=== PATIENT | female | born 1955 | race African-American/Black ===

== ENCOUNTER 2016-04-23 13:45 | Outpatient (RCR) | payer MEDICAID ==
[~2016-04-23 13:45] MED LIST: ACETAMINOPHEN W1 TA6 PO; ACTOS 15MG TAB15 MG PO; ALDACTONE; ALDACTONE 25MG25 M1 PO; ALLEGRA 180MG180 MG PO; AMOXICILLIN 8751 TAB PO; ANTIVERT; ANTIVERT 25MG25 MG PO; ASPIRIN E.C. 8181 MG PO; ATIVAN 0.50.5 MG/TAB PO; BUPROBAN150 MG PO; CELEXA10 MG PO; CLARITIN; CLARITIN 1010 MG/TAB PO; CLEOCIN HC150 MG/CAP PO; CLEOCIN HCL300 MG PO; CLINDAMYCIN HC150 MG PO; COZAAR 25MG25 MG/TAB PO; COZAAR100 MG PO; DIABETA; DIFLUCAN150 MG PO; DIOVAN 160MG160 MG PO; DIOVAN160 MG PO; FERROUS SULFATE65 MG PO; FLEXERIL 1010 MG/TAB PO; GLUCOPHAGE1000 MG PO; GUAIFEN AC 10120 ML PO; HCTZ12.5TAB PO; IBU-8800 MG PO; JANUMET 1000 MG1 TA1 PO; JANUMET 500 MG-1 TA1 PO; LANTUS100 U/ML; LEVEMIR FLEX100 U/ML SQ; LIPITOR20 MG PO; LOPRESSOR 225 MG/TAB PO; LORTAB 10/500 51 TAB PO; LORTAB 5/500 501 TAB PO; LOVENOX 4040 MG/0.4 SQ; LOZOL; LYRICA 50MG CAP50 MG PO; Lantus; MOTRIN 800800 MG/TAB PO; NATEGLINIDE120 MG PO; NATURE'S BLE1000 MCG; NEURONTIN300 MG/CAP PO; NICODERM C21 MG/PATC TD; NORCO 325 MG-51 TAB PO; NORCO 325 MG-7.1 TAB PO; NORMODYNE200 MG PO; NOVLOG SQ; PERCOCET 325 MG1 TA2 PO; PHENERGAN W/CO120 ML PO; PLAVIX 75MG TAB75 MG PO; PRAVACHOL 20MG20 MG PO; PREVPAC; PRILOSEC 20MG20 MG PO; PRINCIPEN500 MG PO; PROAIR HFA0.09 MG/AC IH; PROVENTIL0.09 MG/A1 IH; PROZAC 20MG20 MG PO; PrevPak; Remove Patch TD; TRANDATE 100MG100 MG PO; TRANSDERM-0.5 MG/21 TD; TUSS PO; TYLENOL #3 301 UDTAB PO; TYLENOL 500MG500 MG PO; TYLENOL W/COD1 UDTAB PO; ULTRAM 50MG TAB50 MG PO; VICTOZA6 MG/ML SQ; XANAX .25M0.25 MG/TA PO; ZITHROMAX 250M250 MG PO; ZITHROMAX Z PA250 MG PO; ZOCOR 40MG40 MG PO; ZOCOR40 MG PO; ZOFRAN 4MG T4 MG/TAB PO; allegra; glyburide PO; starlix
[2016-07-05] MEDS ORDERED: VOLTAREN 75 DR75 MG PO (20:40)
[2016-07-05] MEDS ORDERED: NORCO 325 MG-51 TAB PO (20:40)
[2016-07-05] MEDS ORDERED: PREDNISONE20 MG PO (20:40)
== END 2016-07-06 | disposition home or self-care (01) ==
LOC: MKS.ESL.PT
DX: I63.8 Other cerebral infarction (principal)

== ENCOUNTER 2016-07-05 18:58 | Emergency (ER) | payer MEDICAID ==
[~2016-07-05] VITALS: Ht 157.5 cm; Wt 63.6 kg
[2016-07-05 19:07] VITALS: TEMP 97.9
[2016-07-05] MEDS ORDERED: PREDNISONE20 MG PO (20:40)
[2016-07-05] MEDS ORDERED: NORCO 325 MG-51 TAB PO (20:40)
[2016-07-05] MEDS ORDERED: VOLTAREN 75 DR75 MG PO (20:40)
[2016-07-05 20:48] VITALS: BP 136/78; PULSE 74
== END 2016-07-05 20:59 | disposition home or self-care (01) ==
LOC: COL.ER 18:58
DX: M71.551 Other bursitis, not elsewhere classified, right hip (principal); I10 Essential (primary) hypertension; E11.9 Type 2 diabetes mellitus without complications; F17.210 Nicotine dependence, cigarettes, uncomplicated; Z79.4 Long term (current) use of insulin; I69.351 Hemiplegia and hemiparesis following cerebral infarction affecting right dominant side
CPT/HCPCS: J1885; J7512

== ENCOUNTER 2016-09-06 21:08 | Emergency (ER) | payer MEDICAID ==
[~2016-09-06] VITALS: Ht 157.5 cm; Wt 68.2 kg
[~2016-09-06 21:08] MED LIST changes: +PREDNISONE20 MG PO; +VOLTAREN 75 DR75 MG PO
[2016-09-06 21:12] VITALS: BP 140/74; TEMP 98.2
[2016-09-06 22:16] VITALS: PULSE 82
== END 2016-09-06 22:17 | disposition home or self-care (01) ==
LOC: COL.ER 21:08
DX: K08.89 Other specified disorders of teeth and supporting structures (principal); Z86.73 Personal history of transient ischemic attack (TIA), and cerebral infarction without residual deficits

== ENCOUNTER 2016-10-21 13:15 | Outpatient (RCR) | payer MEDICAID ==
[2016-10-28] MEDS ORDERED: CYMBALTA 60MG60 MG PO (15:25)
[2016-10-28] MEDS ORDERED: SYNTHROID0.05 MG/TA PO (15:25)
[2016-10-28] MEDS ORDERED: GLUCOPHAGE1000 MG PO (15:28)
[2016-10-28] MEDS ORDERED: ULTRAM 50MG TAB50 MG PO (17:38)
[2016-12-22] MEDS ORDERED: NICODERM C14 MG/PATC TD (08:39)
[2016-12-22] MEDS ORDERED: PRAVACHOL 40MG40 MG PO (08:39)
[2016-12-22] MEDS ORDERED: COZAAR 50MG50 MG/TAB PO (08:59)
[2016-12-23] MEDS ORDERED: CYMBALTA 60MG60 MG PO (13:49)
== END 2016-12-29 | disposition home or self-care (01) ==
LOC: WSST
DX: I69.351 Hemiplegia and hemiparesis following cerebral infarction affecting right dominant side (principal); I69.320 Aphasia following cerebral infarction; I69.398 Other sequelae of cerebral infarction; R49.0 Dysphonia
CPT/HCPCS: G8999-GN; G9186-GN

== ENCOUNTER 2016-10-28 12:27 | Emergency (ER) | payer MEDICAID ==
[~2016-10-28] VITALS: Ht 157.5 cm; Wt 71.4 kg
[2016-10-28 12:42] VITALS: TEMP 98.3
[2016-10-28 14:23] LABS: BASO # 0.1 (0.0-0.2); BASO % 0.7 % (0.0-2.0); EOS # 0.3 (0.0-0.7); EOS % 3.1 % (0-4.0); GRAN # 6.1 (1.4-6.5); GRAN % 63.6 % (42.2-75.2); HEMOGLOBIN 12.3 g/dl (12.5-16.0); LYMPH # 2.5 (1.2-3.4); LYMPH % 25.9 % (20.0-51.0); MEAN CELL VOLUME 91 fl (80.0-100.0); MEAN CORPUSCULAR HEMOGLOBIN 30 pg (27.0-31.0); MEAN CORPUSCULAR HGB CONC 33 g/dl (33.0-37.0); MEAN PLATELET VOLUME 10.4 fl (7.4-10.4); MONO # 0.6 (0.1-0.6); MONO % 6.5 % (1.7-9.3); PLATELET COUNT 255 K/mm3 (130-400); RED BLOOD COUNT 4.07 M/mm3 (4.10-5.30); REDCELL DISTRIBUTION WIDTH-CV 12.2 % (11.5-14.5); WHITE BLOOD COUNT 9.6 K/mm3 (4.8-10.8)
[2016-10-28 14:24] LABS: HEMATOCRIT 36.9 % (37.0-47.0); PROTHROMBIN TIME 10.7 SECONDS (9.7-12.8)
[2016-10-28 14:37] LABS: ADJUSTED CALCIUM 9.4 mg/dL (8.4-10.2); ALANINE AMINOTRANSFERASE 14 U/L (9-52); ALBUMIN 4.3 gm/dL (3.5-5.0); ALKALINE PHOSPHATASE 66 U/L (50-136); ANION GAP 11 mmol/L (7-16); BILIRUBIN,TOTAL 0.5 mg/dL (0.0-1.0); BLOOD UREA NITROGEN 14 mg/dL (7-17); CALCIUM 9.6 mg/dL (8.4-10.2); CARBON DIOXIDE 25 mmol/L (22-30); CHLORIDE 104 mmol/L (98-107); CREATININE, serum 0.68 mg/dL (0.52-1.25); GLUCOSE 107 mg/dL (74-106); POTASSIUM 3.8 mmol/L (3.4-5.0); SODIUM 140 mmol/L (137-145); TOTAL PROTEIN 7.3 gm/dL (6.4-8.2)
[2016-10-28 14:42] LABS: C-REACTIVE PROTEIN < 0.5 mg/dL (0.0-0.9)
[2016-10-28] MEDS ORDERED: SYNTHROID0.05 MG/TA PO (15:25)
[2016-10-28] MEDS ORDERED: CYMBALTA 60MG60 MG PO (15:25)
[2016-10-28] MEDS ORDERED: GLUCOPHAGE1000 MG PO (15:28)
[2016-10-28 15:37] VITALS: PULSE 73
[2016-10-28] MEDS ORDERED: ULTRAM 50MG TAB50 MG PO (17:38)
[2016-10-28 17:52] VITALS: BP 157/90
== END 2016-10-28 17:52 | disposition home or self-care (01) ==
LOC: COL.ER 12:27
PROVIDERS: Family Medicine
DX: I69.320 Aphasia following cerebral infarction (principal); I69.391 Dysphagia following cerebral infarction; I69.351 Hemiplegia and hemiparesis following cerebral infarction affecting right dominant side; R13.10 Dysphagia, unspecified; R51 Headache; I10 Essential (primary) hypertension

== ENCOUNTER 2016-12-19 13:14 | Observation (INO) | payer MEDICAID ==
[~2016-12-19] VITALS: Ht 157.5 cm; Wt 67.3 kg
[~2016-12-19 13:14] MED LIST changes: +CYMBALTA 60MG60 MG PO; +SYNTHROID0.05 MG/TA PO
[2016-12-19 14:29] LABS: BASO # 0.1 (0.0-0.2); BASO % 0.6 % (0.0-2.0); EOS # 0.2 (0.0-0.7); EOS % 2.4 % (0-4.0); GRAN # 6.5 (1.4-6.5); GRAN % 67.3 % (42.2-75.2); HEMOGLOBIN 12.2 g/dl (12.5-16.0); LYMPH # 2.3 (1.2-3.4); LYMPH % 23.9 % (20.0-51.0); MEAN CELL VOLUME 91 fl (80.0-100.0); MEAN CORPUSCULAR HEMOGLOBIN 30 pg (27.0-31.0); MEAN CORPUSCULAR HGB CONC 33 g/dl (33.0-37.0); MEAN PLATELET VOLUME 10.8 fl (7.4-10.4); MONO # 0.5 (0.1-0.6); MONO % 5.5 % (1.7-9.3); PLATELET COUNT 277 K/mm3 (130-400); RED BLOOD COUNT 4.05 M/mm3 (4.10-5.30); REDCELL DISTRIBUTION WIDTH-CV 12.2 % (11.5-14.5); WHITE BLOOD COUNT 9.6 K/mm3 (4.8-10.8)
[2016-12-19 14:30] LABS: HEMATOCRIT 36.8 % (37.0-47.0)
[2016-12-19 14:40] LABS: ADJUSTED CALCIUM 9.7 mg/dL (8.4-10.2); ALBUMIN 4.2 gm/dL (3.5-5.0); BILIRUBIN,TOTAL 0.5 mg/dL (0.0-1.0); CALCIUM 9.9 mg/dL (8.4-10.2); CREATININE, serum 0.62 mg/dL (0.52-1.25); MAGNESIUM 1.7 mg/dL (1.6-2.3); PHOSPHOROUS 3.9 mg/dL (2.5-4.5); POTASSIUM 3.7 mmol/L (3.4-5.0); TOTAL PROTEIN 7.2 gm/dL (6.4-8.2)
[2016-12-19 15:10] LABS: PH 5 (5-8); SQUAMOUS EPITHELIAL 0-2 /hpf; URINE APPEARANCE Clear; URINE BACTERIA None Seen /hpf; URINE BILIRUBIN Negative (NEGATIVE); URINE BLOOD Negative (NEGATIVE); URINE COLOR Yellow; URINE GLUCOSE 1+ (NEGATIVE); URINE KETONE Negative (NEGATIVE); URINE RBC 0-2 /hpf; URINE UROBILINOGEN Negative (NEGATIVE); URINE WBC 0-2 /hpf
[2016-12-19 17:47] VITALS: BP 147/67; PULSE 71; TEMP 98
[2016-12-19 21:09] VITALS: BP 142/70; PULSE 71; TEMP 98
[2016-12-20 03:28] VITALS: BP 133/75; PULSE 56; TEMP 97.9
[2016-12-20 09:33] LABS: THYROXINE (T4)-TOTAL 8.2 ug/dL (5.5-11.0)
[2016-12-20 09:47] LABS: THYROID STIMULATING HORMONE 7.49 uIU/mL (0.465-4.680)
[2016-12-20 10:10] VITALS: BP 144/100; PULSE 59; TEMP 98.8
[2016-12-20 12:54] VITALS: BP 154/63; PULSE 122; TEMP 98.3
[2016-12-20 15:44] VITALS: BP 159/60; PULSE 73; TEMP 98.2
[2016-12-20 21:30] VITALS: BP 147/62; PULSE 67; TEMP 98.3
[2016-12-21] VITALS (7 sets, daily range): BP systolic 127–170; BP diastolic 59–81; PULSE 68–87; TEMP 98.1–98.7
[2016-12-22] VITALS (7 sets, daily range): BP systolic 130–181; BP diastolic 52–140; PULSE 70–109; TEMP 97.9–99.1
[2016-12-22] MEDS ORDERED: PRAVACHOL 40MG40 MG PO (08:39)
[2016-12-22] MEDS ORDERED: NICODERM C14 MG/PATC TD (08:39)
[2016-12-22] MEDS ORDERED: COZAAR 50MG50 MG/TAB PO (08:59)
[2016-12-23 00:55] VITALS: BP 149/120; PULSE 79; TEMP 98.4
[2016-12-23 05:05] VITALS: BP 146/95; PULSE 75; TEMP 98
[2016-12-23 07:22] VITALS: BP 130/56; PULSE 367; PULSE 67; TEMP 98
[2016-12-23 11:35] VITALS: BP 182/79; PULSE 79; TEMP 97.9
[2016-12-23] MEDS ORDERED: CYMBALTA 60MG60 MG PO (13:49)
== END 2016-12-23 14:05 | disposition home or self-care (01) ==
LOC: COL.ER 13:14 → MEDICAL 16:46
PROVIDERS: Emergency Medicine; Psychiatry & Neurology Neurology
DX: I63.8 Other cerebral infarction (principal); R13.10 Dysphagia, unspecified; I10 Essential (primary) hypertension; I69.991 Dysphagia following unspecified cerebrovascular disease; I69.922 Dysarthria following unspecified cerebrovascular disease; I69.951 Hemiplegia and hemiparesis following unspecified cerebrovascular disease affecting right dominant side; E11.9 Type 2 diabetes mellitus without complications; Z79.4 Long term (current) use of insulin; E78.5 Hyperlipidemia, unspecified; F17.210 Nicotine dependence, cigarettes, uncomplicated; Z79.02 Long term (current) use of antithrombotics/antiplatelets; Z79.82 Long term (current) use of aspirin
CPT/HCPCS: 99223-AI; 99231-AI; 99232-AI; 99239; A9585; G0378; G8978-GP; G8979-GP; G8987-GO; G8988-GO; G8996-GN; G8997-GN; G8998-GN; J1650; J1815; J7030; J7040

== ENCOUNTER 2017-01-13 04:08 | Emergency (ER) | payer MEDICAID ==
[~2017-01-13 04:08] MED LIST changes: +COZAAR 50MG50 MG/TAB PO; +NICODERM C14 MG/PATC TD; +PRAVACHOL 40MG40 MG PO
[2017-01-13 04:10] VITALS: BP 116/56; PULSE 63; TEMP 98.9
[2017-01-13] MEDS ORDERED: ANTIVERT 25MG25 MG PO (04:19)
[2017-01-13] MEDS ORDERED: SYNTHROID0.05 MG/TA PO (04:19)
== END 2017-01-13 07:10 | disposition home or self-care (01) ==
LOC: COL.ER 04:08
DX: R51 Headache (principal); E11.9 Type 2 diabetes mellitus without complications; I10 Essential (primary) hypertension; Z86.73 Personal history of transient ischemic attack (TIA), and cerebral infarction without residual deficits; Z79.4 Long term (current) use of insulin; Z79.82 Long term (current) use of aspirin; Z79.01 Long term (current) use of anticoagulants; Z87.891 Personal history of nicotine dependence
CPT/HCPCS: J1170; J1885; J2550

== ENCOUNTER 2017-02-04 10:30 | Outpatient (RCR) | payer MEDICAID ==
[2017-02-05] MEDS ORDERED: PLAVIX 75MG TAB75 MG PO (07:58)
[2017-02-05] MEDS ORDERED: COZAAR 50MG50 MG/TAB PO (07:59)
[2017-02-05] MEDS ORDERED: TOPROL XL 50MG50 MG PO (08:00)
[2017-02-05] MEDS ORDERED: PATADAY 2.5 ML2.5 ML OU (08:01)
[2017-02-05] MEDS ORDERED: ULTRAM 50MG TAB50 MG PO (08:02)
[2017-02-05] MEDS ORDERED: PRAVACHOL 40MG40 MG PO (08:02)
[2017-02-05] MEDS ORDERED: NICODERM C14 MG/PATC TD (08:02)
[2017-02-05] MEDS ORDERED: CEPHALEXIN500 M1 PO (09:27)
== END 2017-03-31 | disposition home or self-care (01) ==
LOC: WSST
DX: I69.322 Dysarthria following cerebral infarction (principal); I69.391 Dysphagia following cerebral infarction; I69.319 Unspecified symptoms and signs involving cognitive functions following cerebral infarction; I69.351 Hemiplegia and hemiparesis following cerebral infarction affecting right dominant side

== ENCOUNTER 2017-02-05 06:29 | Outpatient (CLI) | payer MEDICAID ==
[~2017-02-05] VITALS: Ht 157.6 cm; Wt 64.6 kg
[2017-02-05] VITALS (10 sets, daily range): BP systolic 119–175; BP diastolic 57–97; PULSE 64–80; TEMP 98.9
[2017-02-05 07:48] LABS: HEMOGLOBIN 12.1 g/dl (12.5-16.0); MEAN CELL VOLUME 94 fl (80.0-100.0); MEAN CORPUSCULAR HEMOGLOBIN 31 pg (27.0-31.0); MEAN CORPUSCULAR HGB CONC 33 g/dl (33.0-37.0); MEAN PLATELET VOLUME 10.6 fl (7.4-10.4); PLATELET COUNT 257 K/mm3 (130-400); RED BLOOD COUNT 3.88 M/mm3 (4.10-5.30); WHITE BLOOD COUNT 10.3 K/mm3 (4.8-10.8)
[2017-02-05 07:51] LABS: HEMATOCRIT 36.3 % (37.0-47.0)
[2017-02-05 07:58] LABS: CALCIUM 9.7 mg/dL (8.4-10.2); CREATININE, serum 0.65 mg/dL (0.52-1.25); POTASSIUM 3.7 mmol/L (3.4-5.0)
[2017-02-05] MEDS ORDERED: PLAVIX 75MG TAB75 MG PO (07:58)
[2017-02-05] MEDS ORDERED: COZAAR 50MG50 MG/TAB PO (07:59)
[2017-02-05] MEDS ORDERED: TOPROL XL 50MG50 MG PO (08:00)
[2017-02-05] MEDS ORDERED: PATADAY 2.5 ML2.5 ML OU (08:01)
[2017-02-05] MEDS ORDERED: NICODERM C14 MG/PATC TD (08:02)
[2017-02-05] MEDS ORDERED: PRAVACHOL 40MG40 MG PO (08:02)
[2017-02-05] MEDS ORDERED: ULTRAM 50MG TAB50 MG PO (08:02)
[2017-02-05 08:16] LABS: PROTHROMBIN TIME 11.1 SECONDS (9.7-12.8)
[2017-02-05] MEDS ORDERED: CEPHALEXIN500 M1 PO (09:27)
== END 2017-02-05 11:50 | disposition home or self-care (01) ==
LOC: COL.RAD 06:29
PROVIDERS: Internal Medicine Cardiovascular Disease
DX: I69.951 Hemiplegia and hemiparesis following unspecified cerebrovascular disease affecting right dominant side (principal); I10 Essential (primary) hypertension; E78.5 Hyperlipidemia, unspecified; E11.9 Type 2 diabetes mellitus without complications; I69.922 Dysarthria following unspecified cerebrovascular disease; I69.991 Dysphagia following unspecified cerebrovascular disease; R13.10 Dysphagia, unspecified; F17.210 Nicotine dependence, cigarettes, uncomplicated; Z79.4 Long term (current) use of insulin; Z79.02 Long term (current) use of antithrombotics/antiplatelets; R06.09 Other forms of dyspnea
CPT/HCPCS: J2250; J3010

== ENCOUNTER 2017-05-17 11:20 | Emergency (ER) | payer MEDICAID ==
[~2017-05-17] VITALS: Ht 154.9 cm; Wt 60.5 kg
[~2017-05-17 11:20] MED LIST changes: +CEPHALEXIN500 M1 PO; +PATADAY 2.5 ML2.5 ML OU; +TOPROL XL 50MG50 MG PO
[2017-05-17 11:27] VITALS: TEMP 100.6
[2017-05-17 12:09] LABS: INFLUENZA A NEGATIVE; INFLUENZA B NEGATIVE
[2017-05-17 12:57] LABS: BASO % 0.3 % (0.0-2.0); EOS % 0.1 % (0-4.0); GRAN # 12.8 (1.4-6.5); GRAN % 83.9 % (42.2-75.2); LYMPH # 1.5 (1.2-3.4); LYMPH % 10.1 % (20.0-51.0); MEAN CELL VOLUME 93 fl (80.0-100.0); MEAN CORPUSCULAR HGB CONC 33 g/dl (33.0-37.0); MEAN PLATELET VOLUME 10.9 fl (7.4-10.4); MONO # 0.8 (0.1-0.6); MONO % 5.2 % (1.7-9.3); PLATELET COUNT 231 K/mm3 (130-400); RED BLOOD COUNT 3.69 M/mm3 (4.10-5.30)
[2017-05-17 13:03] LABS: HEMATOCRIT 34.4 % (37.0-47.0); HEMOGLOBIN 11.4 g/dl (12.5-16.0); MEAN CORPUSCULAR HEMOGLOBIN 31 pg (27.0-31.0)
[2017-05-17 13:06] LABS: ALBUMIN 4.4 gm/dL (3.5-5.0); BILIRUBIN,TOTAL 0.4 mg/dL (0.0-1.0); CALCIUM 9.5 mg/dL (8.4-10.2); CREATININE, serum 0.74 mg/dL (0.52-1.25); POTASSIUM 3.8 mmol/L (3.4-5.0); TOTAL PROTEIN 7.5 gm/dL (6.4-8.2)
[2017-05-17 15:30] LABS: COLLECTION METHOD CLEAN CATCH
[2017-05-17 15:37] LABS: MUCOUS Present /lpf; PH 5 (5-8); URINE APPEARANCE Cloudy; URINE BACTERIA Rare /hpf; URINE BILIRUBIN Negative (NEGATIVE); URINE BLOOD Negative (NEGATIVE); URINE COLOR Yellow; URINE GLUCOSE 3+ (NEGATIVE); URINE KETONE Negative (NEGATIVE); URINE LEUKOCYTE ESTERASE Trace (NEGATIVE); URINE NITRATE Negative (NEGATIVE); URINE PROTEIN(semi-quant) 1+ (NEGATIVE); URINE RBC 0-2 /hpf; URINE UROBILINOGEN Negative (NEGATIVE)
[2017-05-17] MEDS ORDERED: ZITHROMAX Z PA250 MG PO (16:18)
[2017-05-17 16:19] VITALS: BP 135/81; PULSE 76
== END 2017-05-17 16:32 | disposition home or self-care (01) ==
LOC: COL.ER 11:20
PROVIDERS: Emergency Medicine
DX: R05 Cough (principal); R09.81 Nasal congestion; R50.9 Fever, unspecified; R51 Headache; M25.50 Pain in unspecified joint; R53.81 Other malaise; E11.9 Type 2 diabetes mellitus without complications; E78.5 Hyperlipidemia, unspecified; I10 Essential (primary) hypertension; R00.0 Tachycardia, unspecified; Z86.73 Personal history of transient ischemic attack (TIA), and cerebral infarction without residual deficits; E03.9 Hypothyroidism, unspecified; F17.200 Nicotine dependence, unspecified, uncomplicated; Z88.2 Allergy status to sulfonamides; Z79.4 Long term (current) use of insulin; Z79.82 Long term (current) use of aspirin; Z79.02 Long term (current) use of antithrombotics/antiplatelets
CPT/HCPCS: J7030

== ENCOUNTER 2017-06-10 04:46 | Emergency (ER) | payer MEDICAID ==
[~2017-06-10] VITALS: Ht 157.5 cm; Wt 63.6 kg
[2017-06-10 04:50] VITALS: PULSE 75; TEMP 98
[2017-06-10] MEDS ORDERED: PRILOSEC 20MG20 MG PO (07:02)
[2017-06-10 07:04] VITALS: BP 136/69
== END 2017-06-10 07:09 | disposition home or self-care (01) ==
LOC: COL.ER 04:46
DX: T17.890A Other foreign object in other parts of respiratory tract causing asphyxiation, initial encounter (principal); Z79.4 Long term (current) use of insulin; Z79.82 Long term (current) use of aspirin; Z79.02 Long term (current) use of antithrombotics/antiplatelets; Z86.73 Personal history of transient ischemic attack (TIA), and cerebral infarction without residual deficits

== ENCOUNTER 2017-08-01 11:11 | Emergency (ER) | payer MEDICAID ==
[~2017-08-01] VITALS: Ht 157.5 cm; Wt 64.1 kg
[2017-08-01 11:13] VITALS: TEMP 98.1
[2017-08-01 12:26] LABS: BASO # 0.1 (0.0-0.2); BASO % 0.8 % (0.0-2.0); EOS # 0.3 (0.0-0.7); EOS % 2.9 % (0-4.0); GRAN # 6.6 (1.4-6.5); GRAN % 63.6 % (42.2-75.2); HEMOGLOBIN 12.1 g/dl (12.5-16.0); LYMPH # 2.6 (1.2-3.4); LYMPH % 24.9 % (20.0-51.0); MEAN CELL VOLUME 93 fl (80.0-100.0); MEAN CORPUSCULAR HEMOGLOBIN 31 pg (27.0-31.0); MEAN CORPUSCULAR HGB CONC 33 g/dl (33.0-37.0); MEAN PLATELET VOLUME 10.6 fl (7.4-10.4); MONO # 0.8 (0.1-0.6); MONO % 7.5 % (1.7-9.3); PLATELET COUNT 196 K/mm3 (130-400); RED BLOOD COUNT 3.96 M/mm3 (4.10-5.30); REDCELL DISTRIBUTION WIDTH-CV 12.1 % (11.5-14.5)
[2017-08-01 12:31] LABS: HEMATOCRIT 36.9 % (37.0-47.0)
[2017-08-01 12:44] LABS: ALANINE AMINOTRANSFERASE 18 U/L (9-52); ALBUMIN 3.8 gm/dL (3.5-5.0); ALKALINE PHOSPHATASE 92 U/L (50-136); ANION GAP 9 mmol/L (7-16); AST,SGOT 24 U/L (15-37); BILIRUBIN,TOTAL 0.4 mg/dL (0.0-1.0); BLOOD UREA NITROGEN 16 mg/dL (7-17); CALCIUM 9.7 mg/dL (8.4-10.2); CARBON DIOXIDE 28 mmol/L (22-30); CHLORIDE 105 mmol/L (98-107); CREATININE, serum 0.64 mg/dL (0.52-1.25); GLUCOSE 149 mg/dL (74-106); POTASSIUM 4.1 mmol/L (3.4-5.0); SODIUM 142 mmol/L (137-145); TOTAL PROTEIN 7.3 gm/dL (6.4-8.2)
[2017-08-01 12:46] LABS: C-REACTIVE PROTEIN < 0.5 mg/dL (0.0-0.9)
[2017-08-01 12:49] LABS: COLLECTION METHOD CATHETER
[2017-08-01 12:55] LABS: TROPONIN-I < 0.012 ng/mL (0.000-0.034)
[2017-08-01 12:56] LABS: MUCOUS Present /lpf; PH 5 (5-8); SQUAMOUS EPITHELIAL 0-2 /hpf; URINE APPEARANCE Clear; URINE BACTERIA None Seen /hpf; URINE BILIRUBIN Negative (NEGATIVE); URINE BLOOD Negative (NEGATIVE); URINE COLOR Yellow; URINE GLUCOSE Negative (NEGATIVE); URINE KETONE Negative (NEGATIVE); URINE LEUKOCYTE ESTERASE Negative (NEGATIVE); URINE NITRATE Negative (NEGATIVE); URINE PROTEIN(semi-quant) Negative (NEGATIVE); URINE RBC 0-2 /hpf; URINE UROBILINOGEN Negative (NEGATIVE)
[2017-08-01 14:01] VITALS: BP 168/96; PULSE 63
== END 2017-08-01 14:02 | disposition home or self-care (01) ==
LOC: COL.ER 11:11
PROVIDERS: Emergency Medicine
DX: R53.1 Weakness (principal); R42 Dizziness and giddiness; E11.9 Type 2 diabetes mellitus without complications; I10 Essential (primary) hypertension; E78.00 Pure hypercholesterolemia, unspecified; F17.210 Nicotine dependence, cigarettes, uncomplicated; Z86.73 Personal history of transient ischemic attack (TIA), and cerebral infarction without residual deficits; Z79.4 Long term (current) use of insulin; Z79.82 Long term (current) use of aspirin; Z79.02 Long term (current) use of antithrombotics/antiplatelets
CPT/HCPCS: J7030

== ENCOUNTER 2017-08-08 10:21 | Emergency (ER) | payer MEDICAID ==
[~2017-08-08] VITALS: Ht 157.5 cm; Wt 64.1 kg
[2017-08-08 10:23] VITALS: TEMP 99.5
[2017-08-08 12:04] VITALS: BP 138/60; PULSE 63
== END 2017-08-08 12:05 | disposition home or self-care (01) ==
LOC: COL.ER 10:21
DX: S16.1XXA Strain of muscle, fascia and tendon at neck level, initial encounter (principal); S00.83XA Contusion of other part of head, initial encounter; H11.32 Conjunctival hemorrhage, left eye; Z79.4 Long term (current) use of insulin; Z79.82 Long term (current) use of aspirin; Z79.02 Long term (current) use of antithrombotics/antiplatelets; W01.198A Fall on same level from slipping, tripping and stumbling with subsequent striking against other object, initial encounter; Y92.009 Unspecified place in unspecified non-institutional (private) residence as the place of occurrence of the external cause

== ENCOUNTER 2017-09-30 13:00 | Outpatient (RCR) | payer MEDICAID | END 2017-10-05 | disposition still patient (30) | LOC: MKS.ESL.PT | DX: I69.922 Dysarthria following unspecified cerebrovascular disease (principal); I69.991 Dysphagia following unspecified cerebrovascular disease; I69.951 Hemiplegia and hemiparesis following unspecified cerebrovascular disease affecting right dominant side; R48.9 Unspecified symbolic dysfunctions; R53.81 Other malaise ==

== ENCOUNTER 2017-09-30 13:45 | Outpatient (RCR) | payer MEDICAID | END 2017-10-07 | disposition still patient (30) | LOC: WSST | DX: I69.359 Hemiplegia and hemiparesis following cerebral infarction affecting unspecified side (principal) ==

== ENCOUNTER 2017-12-22 10:30 | Outpatient (RCR) | payer MEDICAID ==
[2017-12-29] MEDS ORDERED: CHERATUSSIN AC120 ML PO (06:30)
== END 2018-01-06 | disposition home or self-care (01) ==
LOC: WSST
DX: R13.10 Dysphagia, unspecified (principal); R47.1 Dysarthria and anarthria; R48.9 Unspecified symbolic dysfunctions

== ENCOUNTER 2017-12-28 23:58 | Emergency (ER) | payer MEDICAID ==
[~2017-12-28] VITALS: Ht 154.9 cm; Wt 65.9 kg
[2017-12-29 00:06] VITALS: BP 118/69; TEMP 98.5
[2017-12-29 02:36] LABS: BASO # 0.1 (0.0-0.2); BASO % 0.7 % (0.0-2.0); EOS # 0.3 (0.0-0.7); EOS % 3.9 % (0-4.0); GRAN # 5.6 (1.4-6.5); GRAN % 65.2 % (42.2-75.2); LYMPH % 23.1 % (20.0-51.0); MEAN CELL VOLUME 94 fl (80.0-100.0); MEAN CORPUSCULAR HEMOGLOBIN 31 pg (27.0-31.0); MEAN CORPUSCULAR HGB CONC 33 g/dl (33.0-37.0); MEAN PLATELET VOLUME 10.4 fl (7.4-10.4); MONO # 0.6 (0.1-0.6); MONO % 6.7 % (1.7-9.3); PLATELET COUNT 281 K/mm3 (130-400); RED BLOOD COUNT 3.91 M/mm3 (4.10-5.30); REDCELL DISTRIBUTION WIDTH-CV 12.4 % (11.5-14.5)
[2017-12-29 02:41] LABS: PROTHROMBIN TIME 11.4 SECONDS (9.7-12.8)
[2017-12-29 02:49] LABS: HEMATOCRIT 36.7 % (37.0-47.0)
[2017-12-29 02:54] LABS: ALANINE AMINOTRANSFERASE 19 U/L (9-52); ALBUMIN 4.2 gm/dL (3.5-5.0); ALKALINE PHOSPHATASE 71 U/L (50-136); ANION GAP 13 mmol/L (7-16); AST,SGOT 19 U/L (15-37); BILIRUBIN,TOTAL 0.3 mg/dL (0.0-1.0); BLOOD UREA NITROGEN 15 mg/dL (7-17); CALCIUM 9.3 mg/dL (8.4-10.2); CARBON DIOXIDE 28 mmol/L (22-30); CHLORIDE 103 mmol/L (98-107); CREATININE, serum 0.69 mg/dL (0.52-1.25); GLUCOSE 85 mg/dL (74-106); POTASSIUM 3.6 mmol/L (3.4-5.0); SODIUM 145 mmol/L (137-145); TOTAL PROTEIN 7.7 gm/dL (6.4-8.2)
[2017-12-29 03:08] LABS: TROPONIN-I < 0.012 ng/mL (0.000-0.034)
[2017-12-29] MEDS ORDERED: CHERATUSSIN AC120 ML PO (06:30)
[2017-12-29 06:40] VITALS: PULSE 64
== END 2017-12-29 06:44 | disposition home or self-care (01) ==
LOC: COL.ER 23:58
PROVIDERS: Emergency Medicine
DX: I63.9 Cerebral infarction, unspecified (principal); G81.90 Hemiplegia, unspecified affecting unspecified side; R47.1 Dysarthria and anarthria; R13.10 Dysphagia, unspecified; E11.9 Type 2 diabetes mellitus without complications; I10 Essential (primary) hypertension; E03.9 Hypothyroidism, unspecified; E78.5 Hyperlipidemia, unspecified; F17.210 Nicotine dependence, cigarettes, uncomplicated; Z79.4 Long term (current) use of insulin; Z79.02 Long term (current) use of antithrombotics/antiplatelets
CPT/HCPCS: G0378

== ENCOUNTER 2018-02-22 11:00 | Outpatient (RCR) | payer MEDICAID ==
[~2018-02-22 11:00] MED LIST changes: +CHERATUSSIN AC120 ML PO
== END 2018-04-07 | disposition home or self-care (01) ==
LOC: WSST
DX: I69.322 Dysarthria following cerebral infarction (principal); I69.391 Dysphagia following cerebral infarction; R13.10 Dysphagia, unspecified; I69.398 Other sequelae of cerebral infarction; R48.9 Unspecified symbolic dysfunctions

== ENCOUNTER 2018-08-27 08:01 | Emergency (ER) | payer MEDICAID ==
[~2018-08-27] VITALS: Ht 167.6 cm; Wt 63.6 kg
[2018-08-27 08:36] LABS: ALANINE AMINOTRANSFERASE 7 U/L (9-52); ALBUMIN 4.2 gm/dL (3.5-5.0); ALKALINE PHOSPHATASE 70 U/L (50-136); ANION GAP 11 mmol/L (7-16); AST,SGOT 15 U/L (15-37); BILIRUBIN,TOTAL 0.4 mg/dL (0.0-1.0); BLOOD UREA NITROGEN 17 mg/dL (7-17); C-REACTIVE PROTEIN 1.6 mg/dL (0.0-0.9); CALCIUM 9.7 mg/dL (8.4-10.2); CARBON DIOXIDE 28 mmol/L (22-30); CHLORIDE 106 mmol/L (98-107); GLUCOSE 87 mg/dL (74-106); POTASSIUM 3.9 mmol/L (3.4-5.0); SODIUM 145 mmol/L (137-145); TOTAL PROTEIN 7.5 gm/dL (6.4-8.2)
[2018-08-27 08:48] LABS: COLLECTION METHOD CLEAN CATCH
[2018-08-27 08:54] LABS: MUCOUS Present /lpf; PH 5 (5-8); SQUAMOUS EPITHELIAL 0-2 /hpf; URINE APPEARANCE Clear; URINE BACTERIA Rare /hpf; URINE BILIRUBIN Negative (NEGATIVE); URINE BLOOD Negative (NEGATIVE); URINE COLOR Yellow; URINE GLUCOSE Negative (NEGATIVE); URINE KETONE Negative (NEGATIVE); URINE LEUKOCYTE ESTERASE Negative (NEGATIVE); URINE NITRATE Negative (NEGATIVE); URINE PROTEIN(semi-quant) Negative (NEGATIVE); URINE RBC 0-2 /hpf; URINE UROBILINOGEN Negative (NEGATIVE)
[2018-08-27 08:56] LABS: PROTHROMBIN TIME 11.2 SECONDS (9.7-12.8)
[2018-08-27 09:54] LABS: TROPONIN-I < 0.012 ng/mL (0.000-0.035)
[2018-08-27 11:15] LABS: BASO # 0.1 (0.0-0.2); BASO % 0.5 % (0.0-2.0); EOS # 0.3 (0.0-0.7); EOS % 2.3 % (0-4.0); GRAN # 9.6 (1.4-6.5); GRAN % 69.5 % (42.2-75.2); HEMOGLOBIN 11.1 g/dl (12.5-16.0); LYMPH # 2.9 (1.2-3.4); MEAN CELL VOLUME 93 fl (80.0-100.0); MEAN CORPUSCULAR HEMOGLOBIN 31 pg (27.0-31.0); MEAN CORPUSCULAR HGB CONC 33 g/dl (33.0-37.0); MEAN PLATELET VOLUME 10.5 fl (7.4-10.4); MONO # 0.9 (0.1-0.6); MONO % 6.4 % (1.7-9.3); PLATELET COUNT 266 K/mm3 (130-400)
[2018-08-27 11:16] LABS: HEMATOCRIT 33.6 % (37.0-47.0)
[2018-08-27] MEDS ORDERED: NORCO 325 MG-51 TAB PO (11:50)
[2018-08-27 12:29] VITALS: BP 149/97; PULSE 69; TEMP 98.8
== END 2018-08-27 12:29 | disposition home or self-care (01) ==
LOC: COL.ER 08:01
PROVIDERS: Family Medicine
DX: M79.602 Pain in left arm (principal); M79.601 Pain in right arm; I10 Essential (primary) hypertension; E11.9 Type 2 diabetes mellitus without complications; E78.5 Hyperlipidemia, unspecified; F17.210 Nicotine dependence, cigarettes, uncomplicated; Z86.73 Personal history of transient ischemic attack (TIA), and cerebral infarction without residual deficits; Z79.82 Long term (current) use of aspirin; Z79.4 Long term (current) use of insulin; Z79.02 Long term (current) use of antithrombotics/antiplatelets
CPT/HCPCS: J2270

== ENCOUNTER 2019-01-26 13:15 | Outpatient (RCR) | payer MEDICAID ==
[2019-02-01] MEDS ORDERED: ASPIRIN E.C. 8181 MG PO (09:55)
[2019-02-01] MEDS ORDERED: VOLTAREN GEL 1%1 TU TP (09:56)
[2019-02-01] MEDS ORDERED: LEVEMIR100 U/ML SQ (09:57)
[2019-02-01] MEDS ORDERED: ALDACTONE 25MG25 M1 PO (10:02)
[2019-02-01] MEDS ORDERED: CEPHALEXIN500 M1 PO (10:31)
== END 2019-02-01 | disposition still patient (30) ==
LOC: MKS.ESL.PT
DX: I69.351 Hemiplegia and hemiparesis following cerebral infarction affecting right dominant side (principal)

== ENCOUNTER 2019-02-01 08:22 | Day surgery (SDC) | payer MEDICAID ==
[2019-02-01] VITALS (9 sets, daily range): BP systolic 107–153; BP diastolic 57–83; PULSE 50–80; TEMP 97.2–98.4
[~2019-02-01] VITALS: Ht 167.7 cm; Wt 63.0 kg
[2019-02-01] MEDS ORDERED: ASPIRIN E.C. 8181 MG PO (09:55)
[2019-02-01] MEDS ORDERED: VOLTAREN GEL 1%1 TU TP (09:56)
[2019-02-01] MEDS ORDERED: LEVEMIR100 U/ML SQ (09:57)
[2019-02-01] MEDS ORDERED: ALDACTONE 25MG25 M1 PO (10:02)
--- NOTE | 2019-02-01 10:20 | NUR ---
SEE MERGE REPORT FOR MEDICATION ADMINISTRATION TIMES WELL INTRA/POST SEDATION ASSESSMENTS.
[2019-02-01] MEDS ORDERED: CEPHALEXIN500 M1 PO (10:31)
--- NOTE | 2019-02-01 11:00 | NUR ---
Pt returned to EU 9 per bed s/p loop recorder removal. Pt resting well, abram Freitas at bedside.
--- NOTE | 2019-02-01 12:45 | NUR ---
Pt has transfered to w/c with assist of 1, voided and bernardo PO intake s n/v.
--- NOTE | 2019-02-01 13:10 | NUR ---
PIV removed with catheter intact.
--- NOTE | 2019-02-01 13:45 | NUR ---
Pt discharged per w/c by nurse with abram Freitas.
== END 2019-02-01 16:24 | disposition home or self-care (01) ==
LOC: COL.CAR 08:22
DX: Z86.73 Personal history of transient ischemic attack (TIA), and cerebral infarction without residual deficits (principal); E78.2 Mixed hyperlipidemia; I10 Essential (primary) hypertension; Z79.82 Long term (current) use of aspirin; Z79.02 Long term (current) use of antithrombotics/antiplatelets; E11.9 Type 2 diabetes mellitus without complications; Z88.2 Allergy status to sulfonamides; Z79.4 Long term (current) use of insulin; Z87.891 Personal history of nicotine dependence; Z83.3 Family history of diabetes mellitus; Z82.49 Family history of ischemic heart disease and other diseases of the circulatory system; Z82.3 Family history of stroke
CPT/HCPCS: J0690; J2250; J3010; J7040

== ENCOUNTER 2019-03-22 14:15 | Outpatient (RCR) | payer MEDICAID ==
[~2019-03-22 14:15] MED LIST changes: +LEVEMIR100 U/ML SQ; +VOLTAREN GEL 1%1 TU TP
== END 2019-05-16 | disposition home or self-care (01) ==
LOC: MKS.ESL.PT
DX: I69.351 Hemiplegia and hemiparesis following cerebral infarction affecting right dominant side (principal)

== ENCOUNTER → 2019-12-25 | Outpatient (RCR) | payer MEDICAID | END | disposition home or self-care (01) | LOC: WSST → MKS.ESL.PT 09-26 15:45 → WSST 09-28 12:45 → MKS.ESL.PT 10-05 09:15 → WSST 10-10 09:45 → MKS.ESL.PT 10-17 08:45 → WSST 10-24 10:30 → MKS.ESL.PT 11-01 09:00 → WSST 12-11 09:45 | DX: I69.393 Ataxia following cerebral infarction (principal); I69.398 Other sequelae of cerebral infarction; R25.9 Unspecified abnormal involuntary movements ==

== ENCOUNTER 2019-12-28 10:30 | Outpatient (RCR) | payer MEDICAID | END 2020-03-26 | disposition home or self-care (01) | LOC: MKS.ESL.PT | DX: I63.12 Cerebral infarction due to embolism of basilar artery (principal); I69.398 Other sequelae of cerebral infarction ==

== ENCOUNTER 2020-07-04 10:15 | Outpatient (RCR) | payer MEDICAID | END 2020-07-10 09:25 | disposition home or self-care (01) | LOC: MKS.ESL.PT 10:15 | DX: I69.398 Other sequelae of cerebral infarction (principal) ==

== ENCOUNTER 2020-07-24 12:02 | Day surgery (SDC) | payer MEDICAID ==
[~2020-07-24] VITALS: Ht 157.5 cm; Wt 61.3 kg
[2020-07-24 13:22] VITALS: BP 128/68; PULSE 62; TEMP 98.5
[2020-07-24 14:05] VITALS: BP 116/56; PULSE 55; TEMP 96.9
--- NOTE | 2020-07-24 14:05 | NUR ---
Pt to GI bay 6 via cart from ENDO. Pt drowsy. Pt denies pain or nausea. Accu check 80. Pudding and coffee given per pt request. Will continue to monitor. Call light within reach.
[2020-07-24 14:20] VITALS: BP 120/77; PULSE 56
--- NOTE | 2020-07-24 14:20 | NUR ---
Pt tolerating po food and fluids without difficulties. Will continue to monitor. Call light within reach.
[2020-07-24 14:35] VITALS: BP 125/61; PULSE 55
--- NOTE | 2020-07-24 14:35 | NUR ---
Second pudding given per pt request. Pt denies needs. Call light within reach.
[2020-07-24 14:50] VITALS: BP 125/53; PULSE 58
--- NOTE | 2020-07-24 14:50 | NUR ---
Discharge instructions reviewed. Pt voices understanding. IV site discontinued with all parts intact. Pt up to dress with assistance from nurse. Call light within reach.
--- NOTE | 2020-07-24 15:10 | NUR ---
Pt escorted to private car via wheel chair. Pt accompanied home by her friend
== END 2020-07-24 15:10 | disposition home or self-care (01) ==
LOC: SDCO 12:02
DX: Z12.11 Encounter for screening for malignant neoplasm of colon (principal); K63.5 Polyp of colon; K57.30 Diverticulosis of large intestine without perforation or abscess without bleeding; Z88.2 Allergy status to sulfonamides; E11.9 Type 2 diabetes mellitus without complications; Z86.73 Personal history of transient ischemic attack (TIA), and cerebral infarction without residual deficits; E78.5 Hyperlipidemia, unspecified; I10 Essential (primary) hypertension; Z79.82 Long term (current) use of aspirin; Z79.84 Long term (current) use of oral hypoglycemic drugs; I25.10 Atherosclerotic heart disease of native coronary artery without angina pectoris; Z73.9 Problem related to life management difficulty, unspecified
CPT/HCPCS: J3010

== ENCOUNTER 2020-11-21 09:45 | Outpatient (RCR) | payer MEDICAID | END 2020-11-24 | LOC: WSST | DX: I69.920 Aphasia following unspecified cerebrovascular disease (principal); I69.922 Dysarthria following unspecified cerebrovascular disease; I69.991 Dysphagia following unspecified cerebrovascular disease; R13.10 Dysphagia, unspecified; I69.951 Hemiplegia and hemiparesis following unspecified cerebrovascular disease affecting right dominant side; I69.998 Other sequelae following unspecified cerebrovascular disease; R25.2 Cramp and spasm ==

== ENCOUNTER → 2021-06-20 | Outpatient (CLI) | payer MEDICAID | LOC: ZCOL.LAB 17:22 | DX: M79.89 Other specified soft tissue disorders (principal) ==

== ENCOUNTER 2022-06-23 12:27 | Emergency (ER) | payer MEDICAID ==
[~2022-06-23] VITALS: Ht 152.4 cm; Wt 65.0 kg
[2022-06-23 13:03] VITALS: TEMP 98.1
[2022-06-23] MEDS ORDERED: CEPHALEXIN500 M1 PO (16:07)
[2022-06-23 16:20] VITALS: BP 170/91; PULSE 68
== END 2022-06-23 16:20 | disposition home or self-care (01) ==
LOC: COL.ER 12:27
DX: S61.204A Unspecified open wound of right ring finger without damage to nail, initial encounter (principal); S60.454A Superficial foreign body of right ring finger, initial encounter; X58.XXXA Exposure to other specified factors, initial encounter